=== PATIENT | male | born 1980 | race Hispanic/Latino ===

== ENCOUNTER 2020-05-26 21:24 | Emergency (ER) | payer OTHER ==
[2020-05-26] MEDS ORDERED: ACETAMINOPHEN-CODEINE 300/30MG TAB ONE (22:35)
== END 2020-05-27 00:03 | disposition home or self-care (01) ==
LOC: EDH 21:24
DX: S82.841A Displaced bimalleolar fracture of right lower leg, initial encounter for closed fracture (principal); V89.0XXA Person injured in unspecified motor-vehicle accident, nontraffic, initial encounter; Y93.89 Activity, other specified; Y92.89 Other specified places as the place of occurrence of the external cause; Y99.8 Other external cause status
CPT/HCPCS: 29505; 70450; 73610; 73630

== ENCOUNTER 2021-01-01 23:18 | Emergency (ER) | payer OTHER ==
[2021-01-02] MEDS ORDERED: L.E.T. GEL 4%/0.5%/0.18% 3ML 3 ML/SYR SYG TP ONE (00:21)
[2021-01-02] MEDS ORDERED: SULFAMETHOX-TMP DS 800/160 TAB ONE (01:03)
[2021-01-02] MEDS ORDERED: LORAZEPAM 2 MG/ML 1 ML VIAL ONE (01:03)
== END 2021-01-02 01:17 | disposition home or self-care (01) ==
LOC: EDH 23:18
DX: L02.211 Cutaneous abscess of abdominal wall (principal)
CPT/HCPCS: 10060; 96372; 99283; J2060

== ENCOUNTER 2021-07-01 19:08 | Emergency (ER) | payer OTHER ==
[~2021-07-01] VITALS: Ht 175.3 cm; Wt 72.6 kg
[2021-07-01] MEDS ORDERED: HYDR-3421 PO (19:24)
[2021-07-01] MEDS ORDERED: PERM60CR19 TP (19:25)
[2021-07-01 19:27] VITALS: BP 125/96
[2021-07-01] MEDS ORDERED: HYDROXYZINE 25 MG TABLET PO ONE (19:30)
== END 2021-07-01 19:41 | disposition home or self-care (01) ==
LOC: EDH 19:08
DX: B86 Scabies (principal); L30.9 Dermatitis, unspecified

== ENCOUNTER 2023-08-01 23:23 | Emergency (ER) | payer BC ==
[~2023-08-01] VITALS: Ht 170.2 cm; Wt 79.8 kg
[~2023-08-01 23:23] MED LIST: HYDR-3421 PO; PERM60CR19 TP
[2023-08-02] MEDS ORDERED: AMOX1TAB16 PO (01:20)
[2023-08-02] MEDS ORDERED: IBUP-1493 PO (01:20)
[2023-08-02] MEDS ORDERED: AMOX/CLAV 500/125MG TAB PO ONE ×2 (01:25→02:00)
[2023-08-02] MEDS ORDERED: IBUPROFEN 600 MG TABLET ONE (01:25)
[2023-08-02 01:34] VITALS: BP 128/74; PULSE 88; RESP 20; O2SAT 99
[2023-08-02] MEDS ORDERED: IBUPROFEN 600 MG TABLET PO ONE (02:00)
== END 2023-08-02 01:40 | disposition home or self-care (01) ==
LOC: EDH 23:23
DX: K04.7 Periapical abscess without sinus (principal)